=== PATIENT | male | born 1950 | race Caucasian/White ===

== ENCOUNTER → 2018-04-02 | Outpatient (CLI) | payer MEDICARE, BC ==
[2004-12-14 09:23] VITALS: TEMP 97.7
== END ==
LOC: COL.RAD 07:29
DX: K76.9 Liver disease, unspecified (principal); K82.8 Other specified diseases of gallbladder
CPT/HCPCS: A9585

== ENCOUNTER → 2018-09-02 | Outpatient (CLI) | payer MEDICARE, BC ==
[2004-12-14 09:23] VITALS: TEMP 97.7
== END ==
LOC: COL.RAD 06:51
DX: D18.00 Hemangioma unspecified site (principal)
CPT/HCPCS: Q9967

== ENCOUNTER 2023-07-13 07:38 | Day surgery (SDC) | payer MEDICARE, BC ==
[~2023-07-13] VITALS: Ht 177.8 cm; Wt 111.4 kg
[~2023-07-13 07:38] MED LIST: Ondansetron 4 MG/2 ML VIAL IV PRN
[2023-07-13] MEDS ORDERED: LR 1,000 ML IV SCH (09:00)
[2023-07-13] MEDS ORDERED: COSOPT 2%-0.5%10 ML OU (09:07)
[2023-07-13] MEDS ORDERED: XALATAN EYE DROPS OU (09:07)
[2023-07-13] MEDS ORDERED: FLONASE NASAL S16 GM NS (09:08)
[2023-07-13] MEDS ORDERED: PROTONIX 40MG T40 MG PO (09:08)
[2023-07-13] MEDS ORDERED: PRINIVIL20 MG PO (09:08)
[2023-07-13] MEDS ORDERED: ZYRTEC 10MG10 MG PO (09:09)
[2023-07-13] MEDS ORDERED: Lidocaine PF 2% (20 MG/ML) 5 ML VIAL ONE (10:19)
[2023-07-13 10:45] VITALS: BP 113/78; PULSE 63; TEMP 97.4
--- NOTE | 2023-07-13 10:45 | NUR ---
The patient arrived back to [facility] from the endoscopy suite at this time. The patient appears alert and oriented and ambulated from the cart to the recliner in his room with the stand by assistance of two nurses and appearejd to tolerate the activity well. The patient was given some ice water to try at this time. Family is at his bedside at this time. Call light is within reach. Warm blanket provided. Dr. Huizar is at the patient's bedside to discuss the findings of the procedure.
--- NOTE | 2023-07-13 11:30 | NUR ---
Discharge instructions were reviewed with the patient and his at this time. They both verbalized understanding and have no questions for the nurse at this time. The patient's IV to his right aneubital was remvoed and a pressure dressing was applied to the site. The patient is dressed and ready to be escorted out.
--- NOTE | 2023-07-13 11:40 | NUR ---
The patient was escorted out via wheelchair to a private vehicle by AMADOR Carreon. The patient's belongings and discharge paperwork were sent with him. The patient's family is present to drive him home.
[2023-07-13 14:41] VITALS: BP 129/74; PULSE 64; TEMP 97.4
--- NOTE | 2023-07-13 14:45 | NUR ---
0857 Pt ambulatory to [facility] with a steady gait, breathing even and unlabored. Pt is alert and oriented, accompanied by his and daughter. Consents reviewed and signed by pt. IV estabished. LR infusing via gravity. Call light in reach. Warm blanket provided.
== END 2023-07-13 11:40 | disposition home or self-care (01) ==
LOC: SDCO 07:38
DX: Z12.11 Encounter for screening for malignant neoplasm of colon (principal); K63.5 Polyp of colon; K57.30 Diverticulosis of large intestine without perforation or abscess without bleeding; F17.220 Nicotine dependence, chewing tobacco, uncomplicated
CPT/HCPCS: J2704; J7120